=== PATIENT | female | born 1975 | race Caucasian/White ===

== ENCOUNTER 2017-08-08 20:14 | Inpatient (IN) | payer BC ==
[~2017-08-08] VITALS: Ht 180.3 cm; Wt 106.2 kg
[~2017-08-08 20:14] MED LIST: AMLO-110 PO; ASPI325T45 PO; BUPR100T5 PO; CARV12.52 PO; CRS10 PO; ESCI1TAB10 PO; GLGKIT INJ; INSPMPNVLG; LEVO88TA3 PO; LISI-729 PO; LYR/50 PO; NTRGSL/4 UT; PRLSR20 PO
[2017-08-08 22:08] VITALS: BP 154/86; PULSE 80; TEMP 36.6; O2SAT 98; Ht 180.3 cm; Wt 106.2 kg
[2017-08-08] MEDS ORDERED: GABA-112 PO ×2 (22:32→22:33)
[2017-08-08 23:11] VITALS: BP 151/86; PULSE 72; TEMP 36.6; O2SAT 99
[2017-08-09 00:01] VITALS: O2SAT 98
[2017-08-09] MEDS ORDERED: MAGNESIUM HYDROXIDE SUSP 30 ML UDC PO PRN (00:30)
[2017-08-09] MEDS ORDERED: POLYETHYLENE (MIRALAX) 17 GM PACK PO PRN (00:30)
[2017-08-09] MEDS ORDERED: ALUMINUM/MAGNESIUM/SIMETH (MAALOX MAX) 30 ML UDC PO PRN (00:30)
[2017-08-09] MEDS ORDERED: ACETAMINOPHEN 325 MG TAB PO PRN (00:30)
[2017-08-09] MEDS ORDERED: PHARMACIST DISCHARGE MED REC CONSULT PRN (00:30)
[2017-08-09] MEDS ORDERED: ONDANSETRON INJ 2 MG/ML 2 ML VIAL IV PRN (00:30)
--- NOTE | 2017-08-09 00:50 | History and Physical ---
History & Physical Date & Time of Service: Aug 09, 2017 at 00:50 Chief Complaint: TIA Primary Care Physician: José Miguel Waters M.D. History of Present Illness Source: patient 42 yo F direct transfer from [facility] with hx of complex migraines, CAD s/p stenting, HTN, T1DM with neuropathy on insulin pump presenting with Rt sided weakness and visual changes. Around 3 pm on day of arrival patient experienced Rt arm/ leg numbness, weakness, tingling in addition to transient loss of vision in right eye ( resolved within half hr). Pt reports similar symptoms 9-10 yrs ago and symptoms were attributed to complex migraines. Patient also reports 1 week of headaches for which she has been taken Tylenol. She denies LOC. She reports improvement in rt sided weakness, but still believe she had residual numbness, tingling. At outside hospital. patient had elevated BP of 184/88. EKG reportedly normal. Glucose was unremarkable She had a CT head which was unremarkable and was transferred to [facility] due to lack of MRI availability. Past Medical/Surgical History Medical Problems: (1) Coronary artery disease Permanent Comment: s/p MD, s/p PCI Status: Chronic (2) Diabetes mellitus type 1 Permanent Comment: insulin pump Status: Chronic (3) Diabetic nephropathy Status: Chronic (4) Diabetic neuropathy Status: Chronic (5) Diabetic retinopathy Status: Chronic (6) Dyslipidemia Status: Chronic (7) Factor V Leiden mutation Status: Chronic (8) Hypertension Status: Chronic (9) Hypothyroidism Status: Chronic (10) Migraine Status: Chronic (11) Restless leg syndrome Status: Chronic (12) Sleep apnea Status: Chronic (13) Ureteral calculus Status: Chronic (14) Vitamin B12 deficiency Status: Chronic Surgical Problems: (1) Status post cardiac catheterization Permanent Comment: 2010 [facility], LAD + RCA lesions, PCI's performed 05/10/13 [facility] patent LAD and RCA stents Status: Chronic (2) Status post coronary artery stent placement Permanent Comment: 2010 LAD + RCA [facility] Status: Chronic Family History Breast cancer GRANDMOTHER Cancer GRANDFATHER Colon cancer GRANDMOTHER Diabetes mellitus GRANDMOTHER Esophageal cancer FATHER Gestational diabetes SISTER Heart disease GRANDMOTHER Hypertension GRANDMOTHER Malignant melanoma GRANDMOTHER Skin cancer Stroke SISTER GRANDFATHER Social History Smoking Status: Former Smoker Smokeless Tobacco Use: No Alcohol Use: none Drug Use: none Marital Status: Housing status: lives with family Immunizations History of Influenza Vaccine: Yes History of Tetanus Vaccine?: No History of Pneumococcal: Yes History of Hepatitis B Vaccine: No Multi-Drug Resistant Organisms History of MDRO: Yes Allergies Coded Allergies: Carbapenems (Verified Allergy, Mild, HIVES, 08/08/17) Penicillins (Verified Allergy, Mild, HIVES, 08/08/17) Cephalosporins (Verified Allergy, Unknown, HIVES, 01/05/10) Replaces KEFUROX 1.5 G Home Medications Scheduled Amitriptyline HCl (Amitriptyline HCl), 25 MG PO HS Amlodipine (Norvasc), 5 MG PO DAILY Aspirin (Aspirin Ec), 81 MG PO DAILY Bupropion Hcl (Wellbutrin Sr), 100 MG PO DAILY Carvedilol (Coreg), 12.5 MG PO BID Escitalopram Oxalate (Lexapro), 20 MG PO DAILY Gabapentin (Neurontin), 100 MG PO DAILY Gabapentin (Neurontin), 200 MG PO HS Glucagon (Glucagon Emergency Kit), 1 MG INJ UD Insulin Aspart (novoLOG INSULIN PUMP ), 1 EA N/A UD Levothyroxine Sodium (Levothyroxine Sodium), 88 MCG PO DAILY Lisinopril (Prinivil), 5 MG PO DAILY Nitroglycerin (Nitrostat), 0.4 MG UT PRN Omeprazole (Prilosec), 20 MG PO DAILY Rosuvastatin Calcium (Crestor), 10 MG PO DAILY Review of Systems Constitutional: No fever, No chills Respiratory: No cough, No sputum, No shortness of breath Cardiovascular: No chest pain, No palpitations Abdomen: No pain, No nausea, No vomiting Musculoskeletal: No muscle pain, No swelling Genitourinary - Female: No dysuria, No urinary frequency, No hematuria Neurologic: + weakness (RUE, RLE), + numbness/tingling (RUE, RLL), No paralysis Integumentary: No rash, No itch Physical Exam Vital Signs Date Time Temp Pulse Resp B/P (MAP) Pulse Ox O2 Delivery O2 Flow Rate FiO2 08/08/17 23:11 36.6 72 20 151/86 (107) 99 Room Air 08/08/17 22:08 36.6 80 18 154/86 98 Room Air GENERAL: alert, well appearing, no distress EYE EXAM: normal conjunctiva, PERRL and EOM's grossly intact OROPHARYNX: no exudate, no erythema, lips, buccal mucosa, and tongue normal and mucous membranes are moist NECK: supple, no nuchal rigidity, no adenopathy, non-tender LUNGS: Clear to auscultation. Normal chest wall mechanics HEART: no murmurs, S1 normal and S2 normal ABDOMEN: abdomen soft, non-tender, normo-active bowel sounds, no masses, no rebound or guarding. SKIN: no rashes and no bruising UPPER EXTREMITIES: upper extremities are grossly normal, good strength LOWER EXTREMITIES: No pitting edema. NEURO EXAM: Normal sensorium, cranial nerves II-XII intact, normal speech, no weakness of arms, no weakness of legs. Sensation intact and symmetric at upper and lower extremities bilaterally Diagnostics Laboratory Results Results Past 24 Hours Test 08/08/17 23:15 Range/Units Bedside Glucose 135 70-90 mg/dl Impression Assessment and Plan 42 yo F direct transfer from [facility] with hx of complex migraines, Hx of Factor V Leiden CAD s/p stenting, HTN, T1DM with neuropathy on insulin pump presenting with Rt sided weakness and visual changes, CT Head unremarkable. Rt UE, LE weakness, paresthesia: CVA vs. TIA vs. Complex migraines - risk for CVA included CAD, Factor V leiden - CT Head 08/08/17 (outside hospital) : No acute intracranial findings - MRI Brain - MRA Neck /Head - ECHO - CBC,BMP, Coags, HTN - elevated , allow permissive htn up to sys 170 before starting antihypertensive in case of cva etiology - held home medications: Lisinopril, Amlodipine, Coreg Factor V Leiden - NO hx of thromboses - not on anticoagulation at home T1DM - allow home insulin pump use Hx CAD s/p stent c/w crestor Hx Hypothyroidism c/w Synthroid Depression - Escitalopram, Bupropion DVT Prophylaxis -Lovenox Full code Attending Addendum: I have physically seen and examined this patient, have directed the resident's medical activities, and agree with the H&P as noted above with the following exceptions as noted. The patient is awake, alert and oriented 3, well-developed and well-nourished , normocephalic and atraumatic, lying in bed and in no acute distress. HEENT--PERRL, EOMI, mucous membranes and oropharynx dry. Neck--supple, no JVD or bruits, thyroid normal, trachea midline, no adenopathy. Heart--normal S1 and S2, no extra beats, no murmurs, rubs or gallops. Lungs--clear bilaterally with good air movement, no respiratory distress, no accessory muscle use. Abdomen--normal bowel sounds and soft, nontender and nondistended, no hernias or masses, no organomegaly. Extremities--no cyanosis, clubbing or edema. There are good distal pulses b/l. Dermatologic--normal skin turgor, normal color, warm and dry, no abnormal lymph nodes, no rash. Neurologic--cranial nerves II through XII grossly intact, motor and sensory examination normal. Rheumatologic--normal range of motion, nontender, muscles and joints. Psychiatric--normal affect. Assessment and Plan: Patient reported right upper extremity and lower extremity weakness and paresthesias, with relatively normal examination-- Differential includes CVA versus TIA versus complicated migraine. CT of the head from [facility] shows no acute findings. Order MRI brain combo, MRA neck combo, and MRA head without contrast. Echocardiogram with Dopplers. CBC, CMP and magnesium level. CAD/coronary stent/hypertension-- For the next 12 hours allow permissive hypertension with systolic 170, until imaging completed. Home medications include lisinopril, amlodipine and Coreg. Continue Coreg with hold parameters. Level of Care Telemetry Advanced Directives Existing Advance Directive: No Existing Living Will: No Existing Power of Coordinator Of Online Programs: No Resuscitation Status FULL RESUSCITATION VTE Prophylaxis VTE Risk Assessment Done? Y/N: Yes Risk Level: High Given or contraindicated: Enoxaparin (Lovenox)SQ
[2017-08-09 01:45] LABS: BUN/CREATININE RATIO 11.3 (10-20); CALCIUM 9.2 mg/dl (8.5-10.1); CREATININE 0.82 mg/dl (0.60-1.20); POTASSIUM 3.5 mmol/L (3.5-5.1)
[2017-08-09 04:00] VITALS: BP 130/73; PULSE 78; TEMP 36.4; O2SAT 97
[2017-08-09] MEDS ORDERED: LEVOTHYROXINE 88 MCG TAB PO SCH (06:00)
[2017-08-09 06:51] LABS: PROTHROMBIN TIME (PATIENT) 10.2 SECONDS (9.0-12.0)
[2017-08-09 07:25] VITALS: BP 125/77; PULSE 81; TEMP 36.6; O2SAT 97
[2017-08-09 08:05] LABS: ESTIMATED AVERAGE GLUCOSE 154 mg/dl; HA1C FLAG Normal (Normal)
--- NOTE | 2017-08-09 08:45 | Progress Note ---
Progress Note Date of Service Aug 09, 2017. Progress Note Pt admitted overnight but on 08/09 Saw patient individually and then on rounds - PMHx includes CAD when age 31, had stents placed, complex migraine, T1DM since age 5, has insulin pump, last A1c 6.5% (now 7%), diabetic peripheral neuropathy (takes gabapentin), and HTN (takes carvedilol) - Hx of complex migraine, but usually does not include having R leg and arm weakness. Over last few weeks, has had daily headaches and takes 2 Tylenol tablets daily. Did not take any yesterday. - Around 3pm, drove to bus stop. When getting out of car, noticed R eye vision was blurrier than usual. Walked to bus stop to get daughter, and by the time she got there could not see out of R eye. Noticed associated R arm weakness ( entire arm), and R leg weakness, but could still walk. 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 This resolved on its own. - Got home from work, noticed she didn't seem right, and so took her to [facility]. At [facility], BP was elevated. - Was transferred from [facility] for MRI brain - Headache has now improved ROS negative unless otherwise noted in HPI O/E - Gen: Awake, alert, NAD - CVS: RRR, no MRG - Chest: CTAB - Abd: Soft, nontender - Neuro: CN II to XII grossly intact. No facial droop. 4/5 motor strength to R upper and lower extremity. 5/5 in Left. Reflexes, sensation, coordination all intact. Plan Headache: Improving. Due to initial concern for CVA (/per protocol) will consult Neurology. Pending MRI / MRA as well. DDx also includes rebound headache from daily Tylenol use but not taking it yesterday. Neuropathy: Ensure pt can ambulate independently. T1DM: BSGs 130 -135. Continue insulin pump. CAD s/p stenting: Will obtain old records - ?not on aspirin or plavix. Will re- discuss if she had stents placed, and if it was truly CAD she should be on a higher dose of statin Resident Tracking Resident Involvement: Resident Care Provided Care Provided: Adult [facility]
[2017-08-09] MEDS ORDERED: PANTOprazole SOD 40 MG TAB PO SCH (09:00)
[2017-08-09] MEDS ORDERED: ENOXAPARIN 40 MG/0.4 ML SYR SC SCH (09:00)
[2017-08-09] MEDS ORDERED: ESCITALOPRAM OXALATE 20 MG TAB PO SCH (09:00)
[2017-08-09] MEDS ORDERED: GABAPENTIN 100 MG CAP PO SCH ×2 (09:00→21:00)
[2017-08-09] MEDS ORDERED: PNEUMOCOCCAL ADMINISTRATION CHARGE ONE (09:00)
[2017-08-09] MEDS ORDERED: ROSUVASTATIN CALCIUM 10 MG TAB PO SCH (09:00)
[2017-08-09] MEDS ORDERED: BuPROPion SR 100 MG TABCR PO SCH (09:00)
[2017-08-09] MEDS ORDERED: PNEUMOCOCCAL POLYSACCHARIDES 25 MCG/0.5 ML VIAL/SYR IM. ONE (09:00)
--- NOTE | 2017-08-09 10:04 | Neurology Consultation ---
Neurology Consultation Date of Consultation: Aug 09, 2017. Attending Physician: Karthik Lewis D.O. Primary Care Physician: José Miguel Waters M.D. Reason for Consultation: Strokelike symptoms History of Present Illness Source: patient, hospital records The patient is a 42-year-old female who was transferred from [facility] yesterday for further assessment of neurological symptoms. She had presented to [facility] complaining of an episode of right-sided weakness, numbness, and vision loss to the right field that began yesterday afternoon. The symptoms persisted for about 30 minutes and gradually resolved. She complains that she had been experiencing a fairly persistent right frontal headache for about the past week. Past medical history is notable for complex migraine. She recalls having a similar episode about 8 years ago. Her medical history is also notable for type 1 diabetes mellitus for which she has an insulated pump, factor V Leiden gene mutation, hypertension, and coronary artery disease. She takes a daily full dose aspirin as well as Norvasc, lisinopril, Crestor, gabapentin, and antidepressants. She reports that about 3 weeks ago she was bit on the back of her leg by a neighbor's dog. She was subsequently treated in the emergency department and received a tetanus shot as well as 10 days of an oral antibiotic. She recalls that the dogs were quarantined for a while. Upon further questioning, the patient does admit that she experiences fairly frequent , near daily headaches for which she typically takes Tylenol. She is been told not to use nonsteroidal anti-inflammatories by her commissioned defence force officer, Dr. Rutherford, although she does not find these medications very helpful either. The patient recalls that she had been treated by Dr. Williamson, [facility] neurology, many years ago for her headaches and recalls a prescription for amitriptyline. Family History The patient denies a family history of migraine, her sister had a stroke Social History Smokeless Tobacco Use: No Alcohol Use: none Drug Use: none Marital Status: Allergies Coded Allergies: Carbapenems (Verified Allergy, Mild, HIVES, 08/08/17) Penicillins (Verified Allergy, Mild, HIVES, 08/08/17) Cephalosporins (Verified Allergy, Unknown, HIVES, 01/05/10) Replaces KEFUROX 1.5 G Current Inpatient Medications Current Inpatient Medications Medications (Trade) Dose Ordered Sig/Sinan Route Start Time Stop Time Status Last Admin Dose Admin Enoxaparin Sodium (Lovenox Inj) 40 mg Q24H SC 08/09/17 09:00 09/08/17 08:59 Acetaminophen (Tylenol Tab) 650 mg Q4H PRN PO 08/09/17 00:30 09/08/17 00:29 Al Hydrox/Mg Hydrox/Simethicone (Maalox Max Susp) 15 ml Q4H PRN PO 08/09/17 00:30 09/08/17 00:29 Magnesium Hydroxide (Milk Of Magnesia Susp) 30 ml Q12H PRN PO 08/09/17 00:30 09/08/17 00:29 Ondansetron HCl (Zofran Inj) 4 mg Q6H PRN IV 08/09/17 00:30 09/08/17 00:29 Polyethylene (Miralax Powder Packet) 17 gm DAILY PRN PO 08/09/17 00:30 09/08/17 00:29 Miscellaneous Information (Pharmacist Discharge Med Rec Consult) 1 ea UD PRN N/A 08/09/17 00:30 09/08/17 00:29 Bupropion HCl (Wellbutrin-Sr Tab) 100 mg DAILY PO 08/09/17 09:00 09/08/17 08:59 Escitalopram Oxalate (Lexapro Tab) 20 mg DAILY PO 08/09/17 09:00 09/08/17 08:59 Rosuvastatin Calcium (Crestor Tab) 10 mg DAILY PO 08/09/17 09:00 09/08/17 08:59 Pantoprazole Sodium (Protonix Tab) 40 mg QAM PO 08/09/17 09:00 09/08/17 08:59 Gabapentin (Neurontin Cap) 100 mg DAILY PO 08/09/17 09:00 09/08/17 08:59 Gabapentin (Neurontin Cap) 200 mg HS PO 08/09/17 21:00 09/08/17 20:59 Levothyroxine Sodium (Synthroid Tab) 88 mcg DAILYBB PO 08/09/17 06:00 09/08/17 05:59 08/09/17 06:13 88 MCG Review of Systems Constitutional: No fever or chills Eyes: As per history of present illness, no vision loss or diplopia or ocular pain currently ENT: No vertigo or hearing loss Cardiovascular: No chest pain or palpitations Respiratory: No coughing wheezing or shortness of breath Neurological: As per history of present illness, the patient also endorses symptoms of burning pain with associated numbness and tingling affecting the feet related to her diabetic peripheral neuropathy. Psychiatric: Does endorse some symptoms of stress related to her job, denies significant depression or anxiety, taking antidepressants currently Hematologic: Denies history of blood clots or swollen glands, otherwise as per history of present illness A full 10 point review of systems was obtained from this patient with pertinent positives and negatives described in history of present illness, all other systems reviewed and are negative. Physical Exam Vital Signs (Past 24 Hrs): Date Time Temp Pulse Resp B/P (MAP) Pulse Ox O2 Delivery O2 Flow Rate FiO2 08/09/17 08:10 Room Air 08/09/17 07:25 36.6 81 18 125/77 (93) 97 Room Air 08/09/17 04:00 36.4 78 16 130/73 (92) 97 08/09/17 04:00 Room Air 08/09/17 00:01 98 Room Air 08/08/17 23:59 Room Air 08/08/17 23:11 36.6 72 20 151/86 (107) 99 Room Air 08/08/17 22:08 36.6 80 18 154/86 98 Room Air The patient is a well-developed, well-nourished, middle-aged female. She is sitting up comfortably in bed, no acute distress. The patient is alert and oriented to person place and time. Recent and remote memory intact. Attention and concentration normal. She exhibits normal spontaneous speech pattern. Patient exhibits an age-appropriate fund of knowledge and normal vocabulary. Visual leon full to confrontation. Pupils equal round reactive to light and accommodation. Eye movements normal. There is no nystagmus. Facial sensation intact bilaterally. There is normal facial strength and symmetry. No facial droop. Hearing intact to finger rub bilaterally. Palate elevates to midline. Shoulder shrug strength intact bilaterally. Tongue protrudes to midline. There is a length-dependent deficit to temperature and vibration in all 4 limbs. Proprioception and light touch intact. Deep tendon reflexes are diminished throughout. Plantar responses downgoing bilaterally. There is no dysdiadochokinesia or dysmetria with finger to nose or heel to campbell bilaterally. Ophthalmoscopic examination reveals normal-appearing optic disks and posterior segments. No papilledema or hemorrhages. Carotid pulses normal to auscultation bilaterally, no bruits. Gait and station normal. Muscle strength normal throughout for the arms and legs bilaterally. There is normal muscle strength and tone. No atrophy. No abnormal movements observed. Laboratory Results Past 24 Hours: 08/09/17 01:05 Test 08/08/17 23:15 08/09/17 01:05 08/09/17 05:15 Bedside Glucose 135 mg/dl (70-90) Anion Gap 8.0 mmol/L (3-11) Est Creatinine Clear Calc Drug Dose 117.3 ml/min Estimated GFR () 100.9 Estimated GFR (Non- 87.0 BUN/Creatinine Ratio 11.3 (10-20) Estimated Average Glucose 154 mg/dl Hemoglobin A1c 7.0 % (4.5-5.6) Calcium Level 9.2 mg/dl (8.5-10.1) Prothrombin Time 10.2 SECONDS (9.0-12.0) Prothromb Time International Ratio 1.0 (0.9-1.1) Impression This is a 42-year-old female with a history of complex migraine, factor V Leiden gene mutation, type 1 diabetes mellitus, diabetic peripheral neuropathy, and coronary artery disease who presents with a probable complex migraine episode. Of course, a left hemispheric stroke may not be completely excluded, especially in light of her cardiovascular risk factors. Her current neurological examination reveals a length dependent sensory deficit and diminished deep tendon reflexes which is consistent with her history of diabetic peripheral neuropathy. She is otherwise intact and does not have evidence of a hemiparesis or visual field deficit at this time. In addition to complex migraine, this patient suffers from chronic daily headache possibly related to medication (Tylenol) overuse. Plan I agree with obtaining a brain MRI as ordered to further exclude an acute left hemispheric infarct. Additional testing including MRA of the head and neck and transthoracic echocardiogram are probably reasonable as well, especially in light of her cardiovascular risk factors. This patient continue with daily aspirin, Crestor, and gabapentin as ordered. Continue to monitor patient's blood pressure and restart her antihypertensives when medically appropriate. Would start amitriptyline 25 mg at bedtime to address chronic daily headache. Patient should attempt to discontinue or taper off Tylenol. I have no further recommendations at this time. Please contact me if I may be of further assistance.
--- NOTE | 2017-08-09 11:51 | DIAGNOSTIC IMAGING REPORT ---
MRA HEAD WITHOUT CONTRAST HISTORY: Mental status change possible tia TECHNIQUE: 3-D [id number] MRA of the brain was performed without contrast. COMPARISON STUDY: None. FINDINGS: Visualized intracranial internal carotid arteries, distal vertebral arteries, and basilar artery are widely patent. There is no significant stenosis, occlusion, or aneurysm seen within the bilateral ACAs, MCAs, or elevator constructor hydraulic. IMPRESSION: No significant stenosis, occlusion, or aneurysm within the agdaagux of [place]. The above report was generated using voice recognition software. It may contain grammatical, syntax or spelling errors. Electronically signed by: James Dubose M.D. 08/09/2017 11:49 AM Dictated Date/Time: 08/09/2017 11:48 AM
[2017-08-09 11:54] VITALS: BP 117/76; PULSE 84; TEMP 36.7; O2SAT 96
--- NOTE | 2017-08-09 12:06 | DIAGNOSTIC IMAGING REPORT ---
MRA NECK WITHOUT CONTRAST CLINICAL HISTORY: possible ti mental status change COMPARISON STUDY: None. TECHNIQUE: A 1.5 Yazmin magnet was utilized. 2-D and 3-D [id number] imaging was performed to obtain unenhanced MRA of the neck. NASCET criteria were utilized to estimate the degree of carotid stenosis. FINDINGS: The carotid or vertebral basilar systems are unremarkable. No significant stenotic process. No evidence for aneurysm or dissection. IMPRESSION: Normal study. The above report was generated using voice recognition software. It may contain grammatical, syntax or spelling errors. Electronically signed by: James Dubose M.D. 08/09/2017 12:05 PM Dictated Date/Time: 08/09/2017 12:03 PM
--- NOTE | 2017-08-09 12:40 | DIAGNOSTIC IMAGING REPORT ---
BRAIN COMBO CLINICAL HISTORY: cava r/o mental status change COMPARISON STUDY: No previous studies for comparison. TECHNIQUE: Utilizing a 1.5 Yazmin magnet and dedicated coil, multiplanar, multiecho imaging of the brain was performed pre and postcontrast administration. IV administration of 10.6 mL of Gadavist contrast was uneventful. FINDINGS: Multiple foci of increased signal within the periventricular and deep white matter regions. This is consistent with chronic small vessel change versus the possibility of a demyelinating disorder. The optic radiations appear generally clear. No significant postcontrast enhancement characteristics. Small old infarct versus encephalomalacia right occipital lobe. Study is again negative for an acute ischemic insult. Moderate mucosal thickening inferior right mastoid air cells. Sinuses otherwise demonstrate complex polyp versus a proteinaceous cyst of the sphenoid sinus. This measures approximately 20 x 16 x 33 mm. Is also a small polyp of the inferior left maxillary sinus. Study is again negative for abnormal postcontrast enhancement. IMPRESSION: 1. Multiple foci of increased signal within the periventricular deep white matter regions suggestive of vasculitis versus a demyelinating disorder such as multiple sclerosis. 2. No evidence for postcontrast enhancement of significance. 3. 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 4. Mild mucosal thickening inferior right mastoid air cells with a small polyp of the left inferior maxillary sinus. The above report was generated using voice recognition software. It may contain grammatical, syntax or spelling errors. Electronically signed by: James Dubose M.D. 08/09/2017 12:39 PM Dictated Date/Time: 08/09/2017 12:33 PM
--- NOTE | 2017-08-09 13:25 | ECHOCARDIOGRAM REPORT ---
*NOTICE TO RECEIVING DEMOCRAT AGENCY This information is strictly Confidential and protected under [place] law. [place] law prohibits you from making any further disclosure of this information unless further disclosure is expressly permitted by the written consent of the person to whom it pertains or is authorized by law. A general authorization for the release of medical or other information is not sufficient for this purpose. Hospital accepts no responsibility if the information is made available to any other person, INCLUDING THE PATIENT. Interpretation Summary * Name: ALETHEA NORTON Study Date: 08/09/2017 10:41 AM * Patient Location: .2T\S\E215\S\1 HR: 78 * : 1975 (M/d/yyyy) Gender: Female Height: 70 in * Age: 42 yrs Ethnicity: CA Weight: 233 lb * Ordering Physician: Gordon Holder * Referring Physician: Ruby Ferraro * Performed By: Artemio Evans RCS * * Reason For Study: Cerebral Ischemia/ Embolus * BSA: 2.2 m2 * -- Conclusions -- * Technically difficult study. * 1. Normal LV size and wall thickness. * 2. Normal LV systolic function. LVEF 65-70%. No regional wall motion abnormalities. * 3. Normal RV size and function. * 4. No significant valvular pathology. * 5. Technically limited saline contrast study. No gross interatrial shunt noted. * 6. Compared with prior study on 05/08/2016: No significant change. Procedure Details * A saline contrast injection was performed to assess for cardiac shunting. * The injection was performed through an intravenous line in the right arm. * The attending nurse who injected the saline contrast was BOLA RN. * A total of 18 cc of agitated saline was given. * A contrast injection of Definity was performed to improve assessment of LV function. * Contrast was injected into an intravenous site in the right arm. * One vial of Definity ultrasound contrast was diluted in normal saline to a total volume of 10 ml. A total of '4' ml of solution was administered during imaging. * Lot # [id number] of Definity utilized for procedure. * Expiration date . * The attending nurse who injected the contrast agent was SELENA PLAZA. Left Ventricle * The left ventricle is grossly normal size. * There is normal left ventricular wall thickness. * Ejection Fraction = 65-70%. * No regional wall motion abnormalities noted. Right Ventricle * The right ventricle is grossly normal size. * The right ventricular systolic function is normal as assessed by tricuspid annular plane systolic excursion (TAPSE) (normal >1.5 cm). Atria * Borderline left atrial enlargement. * Right atrium not well visualized. * Technically limited saline contrast study. No gross interatrial shunt noted. Mitral Valve * The mitral valve is grossly normal. * There is no mitral valve stenosis. * Significant mitral regurgitation is absent. Tricuspid Valve * The tricuspid valve is not well visualized, but is grossly normal. * There is no tricuspid stenosis. * Significant tricuspid regurgitation is absent. Aortic Valve * The aortic valve opens well. * The aortic valve is trileaflet. * No hemodynamically significant valvular aortic stenosis. * There is no significant aortic regurgitation. Pulmonic Valve * The pulmonary valve is inadequately visualized, but the Doppler data is adequate for interpretation. * Pulmonic stenosis is absent. * There is no significant pulmonary regurgitation. Great Vessels * The aortic root and proximal ascending aorta are normal sized. Pericardium/Pleural * There is no pericardial effusion. MMode 2D Measurements and Calculations IVSd 1.0 cm LVIDd 4.2 cm LVIDs 2.3 cm LVPWd 0.88 cm IVS/LVPW 1.1 FS 44.3 % EDV(Teich) 77.7 ml ESV(Teich) 18.7 ml EF(Teich) 75.9 % EDV(cubed) 73.0 ml ESV(cubed) 12.6 ml EF(cubed) 82.7 % LV mass(C)d 125.7 grams LV mass(C)dI 56.4 grams/m\S\2 SV(Teich) 58.9 ml SI(Teich) 26.5 ml/m\S\2 SV(cubed) 60.3 ml SI(cubed) 27.1 ml/m\S\2 Ao root diam 2.8 cm Ao root area 6.1 cm\S\2 LVOT diam 2.0 cm LVOT area 3.1 cm\S\2 LVAd ap4 23.3 cm\S\2 LVLd ap4 7.7 cm EDV(MOD-sp4) 59.4 ml EDV(sp4-el) 59.8 ml LVAs ap4 8.4 cm\S\2 LVLs ap4 5.7 cm ESV(MOD-sp4) 10.4 ml ESV(sp4-el) 10.5 ml EF(MOD-sp4) 82.5 % EF(sp4-el) 82.5 % LVAd ap2 26.8 cm\S\2 LVLd ap2 8.4 cm EDV(MOD-sp2) 71.2 ml EDV(sp2-el) 72.2 ml LVAs ap2 9.7 cm\S\2 LVLs ap2 6.0 cm ESV(MOD-sp2) 13.6 ml ESV(sp2-el) 13.5 ml EF(MOD-sp2) 80.9 % EF(sp2-el) 81.3 % LVLd %diff 8.6 % EDV(MOD-bp) 68.0 ml LVLs %diff 4.7 % ESV(MOD-bp) 12.3 ml EF(MOD-bp) 82.0 % SV(MOD-sp4) 49.0 ml SI(MOD-sp4) 22.0 ml/m\S\2 SV(MOD-sp2) 57.6 ml SI(MOD-sp2) 25.9 ml/m\S\2 SV(MOD-bp) 55.7 ml SI(MOD-bp) 25.0 ml/m\S\2 SV(sp4-el) 49.4 ml SI(sp4-el) 22.2 ml/m\S\2 SV(sp2-el) 58.7 ml SI(sp2-el) 26.4 ml/m\S\2 Doppler Measurements and Calculations MV E max pete 88.4 cm/sec MV A max pete 76.5 cm/sec MV E/A 1.2 MV dec time 0.16 sec Ao V2 max 124.8 cm/sec Ao max PG 6.2 mmHg Ao max PG (full) 2.8 mmHg RICHARD(V,A) 2.3 cm\S\2 RICHARD(V,D) 2.3 cm\S\2 LV V1 max PG 3.4 mmHg LV V1 max 92.7 cm/sec
[2017-08-09] MEDS ORDERED: ASPI81TA28 PO (14:27)
--- NOTE | 2017-08-09 14:33 | Discharge Instructions ---
Discharge Instructions Date of Service Aug 09, 2017. Admission Reason for Admission: Complex migraine vs TIA Discharge Discharge Diagnosis / Problem: Complex migraine vs TIA Discharge Goals Goal(s): Improve disease control Activity Recommendations Activity Limitations: resume your previous activity Lifting Limitations: none May Resume Sexual Activity: when tolerated Shower/Bathe: no limitations Driving or Machine Use: no limitations . Instructions / Follow-Up Instructions / Follow-Up Follow up with Dr Juarez in the [facility] Neurology office in 2-3 weeks. Call to schedule. If you notice any symptoms recur, please contact your PCP's office or return to the hospital for evaluation. If you notice any chest pain, palpitations, shortness of breath, or other concerning symptoms, please seek medical attention. Your home meds have been continued EXCEPT for the Aspirin dose, which has been changed from 325mg to 81mg. Please let your PCP know that we have made this change as well. We have also added the medication Amitryptiline 25mg at nighttime, which can be helpful for headaches. 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 Amitryptiline can make you very drowsy, so do not take it if you are driving or working at nighttime. Current Hospital Diet Patient's current hospital diet: Diabetes Type 2 Diet, AHA Diet (Heart Healthy) Discharge Diet Recommended Diet: AHA Diet (Heart Healthy), Diabetes Type 1 Diet Pending Studies Studies pending at discharge: no Laboratory Results Hemoglobin A1c Test 08/09/17 01:05 Range/Units Estimated Average Glucose 154 mg/dl Hemoglobin A1c 7.0 H 4.5-5.6 % Medical Emergencies . Who to Call and When: Medical Emergencies: If at any time you feel your situation is an emergency, please call 911 immediately. . Non-Emergent Contact Non-Emergency issues call your: Primary Care Provider . . "Provider Documentation" section prepared by Federica Balderrama. . Director Of Analytical Development Recommendations Director Of Analytical Development Recommendations: Follow up with neurology in 2-3 weeks Amitryptiline 25mg at night Decreased Tylenol use VTE Core Measure Inpt VTE Proph given/why not?: Enoxaparin (Lovenox)SQ
[2017-08-09] MEDS ORDERED: AMT25 PO (14:35)
[2017-08-09] MEDS ORDERED: ASPIRIN 81 MG ECTAB PO STA (14:36)
--- NOTE | 2017-08-09 14:37 | Discharge Instructions ---
Discharge Instructions Date of Service Aug 09, 2017. Admission Reason for Admission: TIA Discharge Discharge Diagnosis / Problem: TIA / Complex migraine Discharge Goals Goal(s): Improve disease control Activity Recommendations Activity Limitations: resume your previous activity . Instructions / Follow-Up Instructions / Follow-Up Follow up with Dr Juarez in the [facility] Neurology office in 2-3 weeks. Call to schedule. If you notice any symptoms recur, please contact your PCP's office or return to the hospital for evaluation. If you notice any chest pain, palpitations, shortness of breath, or other concerning symptoms, please seek medical attention. Your home meds have been continued EXCEPT for the Aspirin dose, which has been changed from 325mg to 81mg. Please let your PCP know that we have made this change as well. We have also added the medication Amitryptiline 25mg at nighttime, which can be helpful for headaches. Try to take less Tylenol, as this can cause worse headaches with usp use. Amitryptiline can make you very drowsy, so do not take it if you are driving or working at nighttime. Risk Factors for Stroke: You can reduce your chances of stroke by working with your medical provider to adopt a healthy lifestyle. Some specific ways to lower your chance of stroke are: * If you are a smoker, now is the time to stop smoking cigarettes * If you are diabetic, improve the control of your blood sugars * Avoid excessive amounts of alcohol * Control high blood pressure * Lose weight if you are overweight * Be sure to lead an active lifestyle * Eat a healthy diet low in salt, cholesterol and fat You should know about other risk factors for stroke that you are unable to control. These include: * Age 55 years or older * Male gender * Certain racial groups: , or / * Family History of Stroke, Mini stroke or Heart Attack * Sickle Cell Disease Follow Up: It is important for you to keep your follow up appointments with your medical provider. Current Hospital Diet Patient's current hospital diet: Diabetes Type 2 Diet, AHA Diet (Heart Healthy) Discharge Diet Recommended Diet: AHA Diet (Heart Healthy), Diabetes Type 1 Diet Pending Studies Studies pending at discharge: no Laboratory Results Hemoglobin A1c Test 08/09/17 01:05 Range/Units Estimated Average Glucose 154 mg/dl Hemoglobin A1c 7.0 H 4.5-5.6 % Medical Emergencies . Who to Call and When: Medical Emergencies: Call 911 immediately if you experience any of the following warning signs and symptoms of Stroke: * Sudden numbness or weakness of the face, arm or leg, especially on one side of the body * Sudden confusion, trouble speaking or understanding * Sudden trouble seeing in one or both eyes * Sudden trouble walking, dizziness, loss of balance or coordination * Sudden severe headache with no cause Do not delay calling 911 if you experience any warning signs or symptoms of a stroke. Delay in seeking medical attention may affect what treatments can be given to you. . Non-Emergent Contact Non-Emergency issues call your: Primary Care Provider . . "Provider Documentation" section prepared by Federica Balderrama. . Bore Mill Operator Recommendations Bore Mill Operator Recommendations: Follow up with neurology in 2-3 weeks Amitryptiline 25mg at night Decreased Tylenol use Stroke Core Measures Reason no t-PA for Stroke: Treatment not indicated Reason no antithrom by day 2: Treatment provided - N/A Reason no antithrom at D/C: Treatment not indicated Reason no statin at D/C: Treatment provided - N/A Reason no anticoag w/a fib: Treatment not indicated VTE Core Measure Inpt VTE Proph given/why not?: Enoxaparin (Lovenox)SQ
--- NOTE | 2017-08-09 14:54 | Discharge Summary ---
Discharge Summary Date of Service Aug 09, 2017. 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 MRA HEAD: IMPRESSION: No significant stenosis, occlusion, or aneurysm within the [place]. MRI BRAIN: IMPRESSION: 1. Multiple foci of increased signal within the periventricular deep white matter regions suggestive of vasculitis versus a demyelinating disorder such as multiple sclerosis. 2. No evidence for postcontrast enhancement of significance. 3. 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 4. Mild mucosal thickening inferior right mastoid air cells with a small polyp of the left inferior maxillary sinus. ECHO: 1. Normal LV size and wall thickness. * 2. Normal LV systolic function. LVEF 65-70%. No regional wall motion abnormalities. * 3. Normal RV size and function. * 4. No significant valvular pathology. * 5. Technically limited saline contrast study. No gross interatrial shunt noted. * 6. Compared with prior study on 05/08/2016: No significant change. Consultations: Dr Juarez, Neurology (Federica Balderrama MD) Medication Reconciliation New Medications: Amitriptyline HCl (Amitriptyline HCl) 25 Mg Tab 25 MG PO HS for 30 Days, #30 TAB Aspirin (Aspirin Ec) 81 Mg Tab 81 MG PO DAILY for 30 Days, #30 TAB Continued Medications: Amlodipine (Norvasc) 5 Mg Tab 5 MG PO DAILY, TAB Bupropion Hcl (Wellbutrin Sr) 100 Mg Tab 100 MG PO DAILY, TAB Carvedilol (Coreg) 12.5 Mg Tab 12.5 MG PO BID, TAB Escitalopram Oxalate (Lexapro) 20 Mg Tab 20 MG PO DAILY Gabapentin (Neurontin) 100 Mg Cap 100 MG PO DAILY, CAP Gabapentin (Neurontin) 100 Mg Cap 200 MG PO HS, CAP Glucagon (Glucagon Emergency Kit) 1 Mg Kit 1 MG INJ UD Insulin Aspart (novoLOG INSULIN PUMP ) 1 Ea Inj 1 EA N/A UD, EA Levothyroxine Sodium (Levothyroxine Sodium) 88 Mcg Tab 88 MCG PO DAILY, TAB 3 Refills Lisinopril (Prinivil) 5 Mg Tab 5 MG PO DAILY, TAB Nitroglycerin (Nitrostat) 0.4 Mg Tab 0.4 MG UT PRN, BTL Omeprazole (Prilosec) 20 Mg Capcr 20 MG PO DAILY, CAP Rosuvastatin Calcium (Crestor) 10 Mg Tab 10 MG PO DAILY Discontinued Medications: Aspirin (Aspirin) 325 Mg Tab 325 MG PO DAILY Referrals At Discharge Follow up Referrals: Neurologist Referral - Within 1-2 Weeks @ [facility] with Koko Juarez M.D. Discharge Exam Review of Systems: Constitutional: No fever, No chills, No sweats, No weight loss, No weakness Eyes: No worsening of vision ENT: No hearing loss Respiratory: No cough, No sputum, No wheezing Cardiovascular: No chest pain, No orthopnea Abdomen: No pain, No nausea Musculoskeletal: No joint pain, No muscle pain Genitourinary - Female: No dysuria, No urinary frequency, No urinary urgency , No urinary incontinence, No urinary retention Neurologic: No memory loss, No paralysis, No weakness, No numbness/tingling , No vertigo Psychiatric: No depression symptoms, No anhedonism Endocrine: No fatigue Hematologic / Lymphatic: No abnormal bleeding/bruising, No clotting problems Integumentary: No rash, No itch Physical Exam: General Appearance: WD/WN, no apparent distress Eyes: normal inspection, PERRL ENT: hearing grossly normal Neck: supple, no JVD Respiratory/Chest: lungs clear, normal breath sounds, no respiratory distress Cardiovascular: regular rate, rhythm, no murmur, normal peripheral pulses Abdomen / GI: normal bowel sounds, non tender, soft Extremities: no calf tenderness, no pedal edema 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 Around 3 pm on day of arrival patient experienced Rt arm/ leg numbness, weakness, tingling in addition to transient loss of vision in right eye ( resolved within half hr). Pt reports similar symptoms 9-10 yrs ago and symptoms were attributed to complex migraines. Patient also reports 1 week of headaches for which she has been taken Tylenol. She denies LOC. She reports improvement in rt sided weakness, but still believe she had residual numbness, tingling. At outside hospital. patient had elevated BP of 184/88. EKG reportedly normal. Glucose was unremarkable She had a CT head which was unremarkable and was transferred to [facility] due to lack of MRI availability. HOSPITAL COURSE Headache, right sided weakness, paresthesiae: CVA vs. TIA vs. Complex migraines vs Hemiplegic migraine - Imaging results as above were normal. After brain MRI results were noted to include vasculitis in differential, ESR was obtained, and was normal at 16. This was discussed with Neurology, and the changes on MRI were likely related to small vessel disease. LP was not performed for MS chandra. - Echo was completed as above. - Labwork was normal. Hypertension - No changes to home medication regime made Hx of CAD - Aspirin changed from 325mg daily to 81mg daily Headaches - Amitryptiline 25mg nightly added. Pt to follow up with Neuro in 2-3 weeks, and this can be increased. - Pt advised to decrease Tylenol consumption. Factor V Leiden - No hx of thrombosis, no anticoagulation use T1DM - Home insulin pump used during admission Hx CAD s/p stent - Statin continued Hx Hypothyroidism - Synthroid continued Depression - Escitalopram, Bupropion continued DVT Prophylaxis -Lovenox Full code Discharged home in good condition on 08/09/17 Follow up: PCP in [address] Juarez in 2-3 weeks Total Time Spent: Greater than 30 minutes This includes examination of the patient, discharge planning, medication reconciliation, and communication with other providers. (Federica Balderrama MD) Resident Physician Supervision Note: I interviewed and examined the patient. Discussed with Dr. Balderrama and agree with findings and plan as documented in the note. Any exceptions or clarifications are listed here: None Documented By: Karthik Lewis feeling better. neurology input appreciated. stable for home. vitals noted nad breathing unlabored no pallor or icterus no neuro deficits transient neuro deficits - migranous pathology most likely. stable for home. outpt neuro and PCP f/u Total Time Spent: Less than 30 minutes (Karthik Lewis D.O.) Discharge Instructions Please refer to the electronic Patient Visit Report (Discharge Instructions) for additional information. (Federica Balderrama MD) Additional Copies To José Miguel Waters M.D. Resident Tracking Resident Involvement: Resident Care Provided Care Provided: Adult Hospital Medicine (Federica Balderrama MD)
[2017-08-09 15:02] VITALS: BP 132/85; PULSE 94; TEMP 36.8; O2SAT 96
--- NOTE | 2017-08-09 15:46 | Pharmacy Progress Note ---
Pharmacist Stroke Counseling Date of Service Aug 09, 2017. Scope Pharmacy has been consulted to provide medication discharge counseling for this patient admitted with possible ischemic stroke/hemorrhagic stroke/ transient ischemic attack as per the Pharmacist Discharge Counseling for Stroke Patients Protocol. Medications on Discharge New Medications: Amitriptyline HCl (Amitriptyline HCl) 25 Mg Tab 25 MG PO HS for 30 Days, #30 TAB Aspirin (Aspirin Ec) 81 Mg Tab 81 MG PO DAILY for 30 Days, #30 TAB Continued Medications: Amlodipine (Norvasc) 5 Mg Tab 5 MG PO DAILY, TAB Bupropion Hcl (Wellbutrin Sr) 100 Mg Tab 100 MG PO DAILY, TAB Carvedilol (Coreg) 12.5 Mg Tab 12.5 MG PO BID, TAB Escitalopram Oxalate (Lexapro) 20 Mg Tab 20 MG PO DAILY Gabapentin (Neurontin) 100 Mg Cap 100 MG PO DAILY, CAP Gabapentin (Neurontin) 100 Mg Cap 200 MG PO HS, CAP Glucagon (Glucagon Emergency Kit) 1 Mg Kit 1 MG INJ UD Insulin Aspart (novoLOG INSULIN PUMP ) 1 Ea Inj 1 EA N/A UD, EA Levothyroxine Sodium (Levothyroxine Sodium) 88 Mcg Tab 88 MCG PO DAILY, TAB 3 Refills Lisinopril (Prinivil) 5 Mg Tab 5 MG PO DAILY, TAB Nitroglycerin (Nitrostat) 0.4 Mg Tab 0.4 MG UT PRN, BTL Omeprazole (Prilosec) 20 Mg Capcr 20 MG PO DAILY, CAP Rosuvastatin Calcium (Crestor) 10 Mg Tab 10 MG PO DAILY Discontinued Medications: Aspirin (Aspirin) 325 Mg Tab 325 MG PO DAILY Action The above medications, specifically ones for stroke treatment/prophylaxis, have been reviewed in detail with the patient and/or patient merchandising representative(s) prior to discharge. This includes indication, common adverse reactions, drug interactions, and medication administration. Medication counseling has been employed using the teach-back method to ensure understanding. Outcome The patient has demonstrated understanding of the medications. Please note, they are aware that the pharmacist will call them within 72 hours post-discharge to confirm that the appropriate medications are being taken and answer any further medication related questions the patient might have at that time. Contact information Individual to be contacted: Deysi Relationship to patient (if applicable): n/a Phone number: [phone] Best time to call: 12-1 pm (during her lunchbreak) patient works until 4:30 every day Additional comments: Patient demonstrated understanding of new medications/medications used for stroke prevention. Was familiar with new medications (aspirin and amitriptyline ) since she had been on both in the past. Knowledgeable about her other medications and familiar with the doses/reports no problems. Per neurology note , unsure if migraine or TIA. Patient to f/u with neurology after discharge. Patient aware that we will be following up with her/calling her. Thank you for allowing pharmacy to be involved in the care of this patient. Please call [phone] or [phone] with any additional questions
[2017-08-09 16:44] VITALS: BP 132/85; PULSE 94; TEMP 36.8; O2SAT 96
--- NOTE | 2017-08-12 16:06 | Pharmacy Progress Note ---
Pharmacist Post D/C Phone Note The patient and/or patient delivery representative(s) were unable to be reached for a follow-up phone call within the 72 hour time frame. Discharge counseling pharmacist contact information has already been provided to the patient should questions arise. Thank you for allowing us to be involved in the care of this patient.
== END 2017-08-09 16:45 | disposition home or self-care (01) | DRG 103 ==
LOC: C.2T 21:23
PROVIDERS: ADMIT Family Medicine; ATTEND Family Medicine
DX: G43.409 Hemiplegic migraine, not intractable, without status migrainosus (principal); D68.51 Activated protein C resistance; G45.9 Transient cerebral ischemic attack, unspecified; E10.40 Type 1 diabetes mellitus with diabetic neuropathy, unspecified; I10 Essential (primary) hypertension; E03.9 Hypothyroidism, unspecified; F32.9 Major depressive disorder, single episode, unspecified; I25.10 Atherosclerotic heart disease of native coronary artery without angina pectoris; Z79.4 Long term (current) use of insulin; Z79.82 Long term (current) use of aspirin; Z79.899 Other long term (current) drug therapy; Z83.3 Family history of diabetes mellitus; Z87.891 Personal history of nicotine dependence; Z95.5 Presence of coronary angioplasty implant and graft; Z96.41 Presence of insulin pump (external) (internal)